=== PATIENT | male | born 1960 | race African-American/Black ===

== ENCOUNTER 2023-05-03 21:48 | Emergency (ER) | payer MEDICAID ==
[~2023-05-03] VITALS: Ht 172.7 cm; Wt 96.1 kg
[2023-05-03 22:12] VITALS: TEMP 97.6; O2SAT 97
[2023-05-03 23:43] LABS: PROTHROMBIN TIME 11.2 sec (9.6-11.0)
[2023-05-04] MEDS: TETANUS, DIPHTHERIA, PERTUSSIS VAC/PF 0.5ML (>10YR OLD) IM ONE (00:29)
[2023-05-04] MEDS: LIDOCAINE HCL/PF 1% 10 MG/ML 5ML VIAL INFIL ONE (00:31)
[2023-05-04] MEDS: BACITRACIN ZINC OINT UDPKT TOP ONE (00:31)
[2023-05-04] MEDS ORDERED: BO1 TP (00:45)
[2023-05-04 01:00] VITALS: BP 98/52; PULSE 58; RESP 15
== END 2023-05-04 01:37 | disposition home or self-care (01) ==
LOC: ER 21:48
DX: S01.01XA Laceration without foreign body of scalp, initial encounter (principal); I10 Essential (primary) hypertension; W10.8XXA Fall (on) (from) other stairs and steps, initial encounter; Y93.89 Activity, other specified; Y92.89 Other specified places as the place of occurrence of the external cause; Y99.8 Other external cause status
CPT/HCPCS: 99285; 85610; 36415; 90715; 12001; 90471; J3490

== ENCOUNTER 2023-05-21 22:17 | Emergency (ER) | payer MEDICAID, OTHER ==
[~2023-05-21] VITALS: Ht 172.7 cm; Wt 95.5 kg
[~2023-05-21 22:17] MED LIST: BO1 TP
[2023-05-21 22:44] VITALS: BP 120/61; PULSE 79; RESP 16; TEMP 97.8; O2SAT 98
== END 2023-05-22 00:12 | disposition home or self-care (01) ==
LOC: ER 22:17
DX: S01.01XD Laceration without foreign body of scalp, subsequent encounter (principal); I10 Essential (primary) hypertension; X58.XXXD Exposure to other specified factors, subsequent encounter
CPT/HCPCS: 99281

== ENCOUNTER 2025-01-21 14:45 | Emergency (ER) | payer MEDICAID ==
[~2025-01-21] VITALS: Ht 172.7 cm; Wt 100.0 kg
[2025-01-21 14:52] VITALS: O2SAT 98
[2025-01-21] MEDS: MAGNESIUM/ALUMINUM HYDROXIDE/SIMETHICONE 30ML UDC PO ONE (15:15)
[2025-01-21] MEDS: DICYCLOMINE HCL 10MG CAPSULE PO ONE (15:15)
[2025-01-21] MEDS: ONDANSETRON 4MG ODT PO ONE (15:15)
[2025-01-21] MEDS: FAMOTIDINE 20MG TABLET PO ONE (15:15)
[2025-01-21] MEDS: SODIUM CHLORIDE 0.9% 1,000 ML IV ONE (15:15)
[2025-01-21 15:49] LABS: HEMATOCRIT. 41.8 % (42.0-52.0); HEMOGLOBIN. 13.5 g/dL (14.0-18.0); MEAN PLATELET VOLUME 7.1 fl (7.4-10.4); PLATELET 208 x1000/uL (130-400); RED BLOOD CELL COUNT 5.13 mill/uL (4.7-6.1); RED CELL DISTRIBUTION WIDTH 14.4 % (11.6-14.6)
[2025-01-21 16:01] LABS: UREA NITROGEN BLOOD 16 mg/dL (9-23)
[2025-01-21 16:02] LABS: CREATININE 1.4 mg/dL (0.6-1.3)
[2025-01-21 16:03] LABS: ASPARTATE AMINOTRANSFERASE 31 IU/L (<34)
[2025-01-21 16:04] LABS: BILIRUBIN DIRECT 0.2 mg/dL (<=3.0); BILIRUBIN TOTAL 0.8 mg/dL (0.1-1.0); PROTEIN TOTAL 7.4 g/dL (6.0-8.3); TROPONIN I HIGH SENSITIVITY 12 ng/L (3.0-53)
[2025-01-21 18:13] LABS: BAND% 1.0 % (1.0-6.0); LYMPHOCYTES % MANUAL 3.0 % (20.0-50.0); MONOCYTES % MANUAL 4.0 % (2.0-8.0); NEUTROPHILS % MANUAL 92.0 % (45.0-75.0); PLATELET ESTIMATE NORMAL
[2025-01-21] MEDS ORDERED: ONDA-239 PO (18:14)
[2025-01-21] MEDS ORDERED: DICY-18 MT (18:14)
[2025-01-21] MEDS ORDERED: MAG-55 MT (18:15)
[2025-01-21 18:37] VITALS: BP 110/70; PULSE 95; RESP 16; TEMP 36.7; O2SAT 98
== END 2025-01-21 18:39 | disposition home or self-care (01) ==
LOC: ER 14:45
DX: K52.9 Noninfective gastroenteritis and colitis, unspecified (principal); I10 Essential (primary) hypertension; R11.2 Nausea with vomiting, unspecified
CPT/HCPCS: 99285; 96360; 71045; 80076; 80048; 83690; 83735; 85025; 84484; 36415; Q0162; J7030